=== PATIENT | male | born 1990 | race Hispanic/Latino ===

== ENCOUNTER 2018-10-14 14:41 | Emergency (ER) | payer OTHER ==
[2018-10-14] MEDS ORDERED: HYDROXYZINE HCL 25 MG TABLET ONE (15:17)
[2018-10-14] MEDS ORDERED: ASPIRIN 325 MG TABLET ONE (15:17)
[2018-10-14 15:22] LABS: BASOPHILS % (AUTO) 0.3 % (0.0-5.0); EOSINOPHILS % (AUTO) 0.2 % (0.0-8.0); HEMATOCRIT 47.8 % (42-54); LYMPHOCYTES % (AUTO) 6.4 % (21.0-51.0); MEAN CORPUSCULAR HEMOGLOBIN 29.7 pg (27.0-33.0); MEAN CORPUSCULAR HGB CONC 33.4 g/dL (32.0-36.0); MONOCYTES % (AUTO) 4.1 % (3.0-13.0); PLATELET COUNT (AUTO) 205 K/uL (130-400); RED BLOOD CELL COUNT(AUTO) 5.38 MIL/uL (4.50-6.20); RED CELL DISTRIBUTION WIDTH 14.8 % (11.0-15.5); WHITE BLOOD COUNT (AUTO) 12.6 K/uL (4.8-10.8)
[2018-10-14 15:37] LABS: CARBON DIOXIDE 27 mmol/L (21-32); CHLORIDE 102 mmol/L (101-111); GLOMERULAR FILTR. RATE CALC 94 mL/min (>60); GLUCOSE,RANDOM 124 mg/dL (70-105); POTASSIUM 3.6 mmol/L (3.5-5.1); SODIUM SERUM 139 mmol/L (136-145); UREA NITROGEN, BLOOD 15 mg/dL (7-18)
[2018-10-14 15:42] LABS: ALANINE AMINOTRANSFERASE 30 U/L (12-78); ALBUMIN 4.6 g/dL (3.5-5.0); ASPARTATE AMINOTRANSFERASE 17 U/L (10-37); BILIRUBIN,TOTAL 0.2 mg/dL (0.2-1.0); CREATINE KINASE, TOTAL 178 U/L (21-232); TOTAL PROTEIN, SERUM 8.1 g/dL (6.0-8.3)
[2018-10-14 15:45] LABS: ALCOHOL, BLOOD < 3 mg/dL (0-10)
[2018-10-14 15:52] LABS: B-TYPE NATRIURETIC PEPTIDE 6 pg/mL (0-100)
[2018-10-14 16:26] LABS: APPEARANCE,URINE SL CLOUDY (CLEAR); BILIRUBIN,URINE NEGATIVE (NEGATIVE); COLOR,URINE YELLOW (YELLOW); GLUCOSE, URINE (UA) 500 mg/dL (NEGATIVE); KETONES,URINE NEGATIVE (NEGATIVE); LEUKOCYTE ESTERASE ,URINE NEGATIVE (NEGATIVE); NITRATE,URINE NEGATIVE (NEGATIVE); OCCULT BLOOD,URINE TRACE-INTACT (NEGATIVE); PH,URINE 5.5 (5.0-8.0); PROTEIN,URINE TRACE mg/dL (NEGATIVE); UROBILINOGEN,URINE 0.2 mg/dL (0.2-1.0)
[2018-10-14 16:34] LABS: AMPHET/METH SCREEN,URINE NEGATIVE (NEGATIVE); BARBITURATE SCREEN, URINE NEGATIVE (NEGATIVE); BENZODIAZEPINES SCREEN,URINE POSITIVE (NEGATIVE); CANNABINOID SCREEN,URINE POSITIVE (NEGATIVE); COCAINE SCREEN,URINE NEGATIVE (NEGATIVE); OPIATE SCREEN,URINE NEGATIVE (NEGATIVE); PHENCYCLIDINE SCREEN,URINE NEGATIVE (NEGATIVE)
[2018-10-14] MEDS ORDERED: AZITHROMYCIN 250 MG TABLET PO ONE (17:18)
[2018-10-14 17:37] LABS: OTHER CRYSTALS,URINE AMMONIUM BIURATES 2+ /LPF (None Seen)
[2018-10-14 17:38] LABS: RBC,URINE 0-1 /HPF (0-1); WBC,URINE 0-1 /HPF (0-1)
[2018-10-14 17:39] LABS: BACTERIA,URINE Few /HPF (None Seen); MUCUS,URINE Few LPF (None Seen); SQUAMOUS EPITHELIAL CELL,UR Rare /HPF (0-2)
== END 2018-10-14 17:24 | disposition home or self-care (01) ==
LOC: EDH 14:41
DX: R07.89 Other chest pain (principal); R05 Cough; Z72.0 Tobacco use
CPT/HCPCS: 36415; 71045; 80053; 80305; 81001; 82550; 83880; 84484 ×2; 85025; 93005 ×2; 99284; G0480

== ENCOUNTER 2021-01-29 00:59 | Emergency (ER) | payer OTHER ==
[~2021-01-29] VITALS: Ht 172.7 cm; Wt 97.6 kg
[2021-01-29 01:00] VITALS: BP 138/87
[2021-01-29 01:26] LABS: BASOPHILS % (AUTO) 0.6 % (0.0-5.0); EOSINOPHILS % (AUTO) 3.7 % (0.0-8.0); LYMPHOCYTES % (AUTO) 39.3 % (21.0-51.0); MEAN CORPUSCULAR HEMOGLOBIN 29.9 pg (27.0-33.0); MEAN CORPUSCULAR HGB CONC 33.8 g/dL (32.0-36.0); MEAN CORPUSCULAR VOLUME 88.5 fL (79-99); MONOCYTES % (AUTO) 7.4 % (3.0-13.0); NEUTROPHILS % (AUTO) 48.8 % (40.0-77.0); PLATELET COUNT (AUTO) 218 K/uL (130-400); RED BLOOD CELL COUNT(AUTO) 5.31 MIL/uL (4.50-6.20); RED CELL DISTRIBUTION WIDTH 13.8 % (11.0-15.5); WHITE BLOOD COUNT (AUTO) 8.3 K/uL (4.8-10.8)
[2021-01-29 01:35] LABS: CREATININE 0.9 mg/dL (0.5-1.5); POTASSIUM 4.1 mmol/L (3.5-5.1)
[2021-01-29 01:39] LABS: ALBUMIN 4.1 g/dL (3.5-5.0); BILIRUBIN,TOTAL 0.4 mg/dL (0.2-1.0); TOTAL PROTEIN, SERUM 7.4 g/dL (6.0-8.3)
[2021-01-29] MEDS ORDERED: 0.9%NACL 1000ML 1,000 ML IV ONE (02:30)
[2021-01-29 02:58] VITALS: BP 136/69
== END 2021-01-29 03:56 | disposition home or self-care (01) ==
LOC: EDH 00:59
DX: E86.9 Volume depletion, unspecified (principal); R53.81 Other malaise
CPT/HCPCS: 36415; 71045; 80053; 84484; 85025; 93005; 96360; 99285; J7030

== ENCOUNTER 2024-06-16 17:30 | Emergency (ER) | payer SELFPAY ==
[~2024-06-16] VITALS: Ht 172.7 cm; Wt 90.7 kg
[2024-06-16] MEDS: teTANUS/diphthERIA TOXOID [ADULT] 0.5 ML VIAL IM ONE (18:01)
[2024-06-16] MEDS: LIDOCAINE HCL 1% 20 ML VIAL INJ SCH (18:02)
[2024-06-16 18:11] VITALS: BP 150/90; PULSE 84; RESP 16; TEMP 98.3; O2SAT 98
--- NOTE | 2024-06-16 19:24 | HMCIMG ---
FINGER(S) 2+VWS LT HISTORY: Laceration of left index finger COMPARISON: None TECHNIQUE: 3 images of left fingers were obtained with specific attention given to the second finger. FINDINGS: There is soft tissue laceration of the second finger. Slight cortical irregularity is seen involving the second distal phalanx with nondisplaced fractures not excluded. There is no acute displaced fracture or dislocation. No evidence of radiopaque foreign body is seen. IMPRESSION: 1. Findings as described above.
[2024-06-16] MEDS: HYDROcodone/acetaMINOPHEN 10/325 MG TAB PO ONE (20:16)
[2024-06-16] MEDS: ceFAZolin SODIUM 1 GM VIAL IM ONE (20:17)
[2024-06-16] MEDS ORDERED: SULF1TAB42 PO (20:20)
--- NOTE | 2024-06-16 20:20 | ERN ---
General Chief Complaint: Laceration/Avulsion Stated Complaint: LACERATION TO LT INDEX FINGER Time Seen by MD: 17:31 Time Seen by Midlevel: 17:31 Source: patient History of Present Illness Initial Comments Patient is a 33-year-old male with no significant past medical history presenting to the emergency department with a laceration to the left index finger. Patient states he was working on a muffler when one of the edges cut the tip of his finger. Patient denies being up-to-date with his tetanus vaccination. Denies any other concerns at this time. Allergies: Coded Allergies: No Known Drug Allergies (Unverified Allergy, Unknown, 01/29/21) Home Meds Active Scripts Sulfamethoxazole/Trimethoprim (Bactrim Ds Tablet) 800 Mg-160 Mg Tablet, 1 TAB PO BID for 7 Days, #14 TAB 0 Refills Prov:GLORIA TAPIA 06/16/24 Past Medical History Past Medical History: No Pertinent History Past Surgical History: None Social History Social History: ETOH ROS Dictation CONSTITUTIONAL: Negative except for HPI HEAD/FACE: Negative except for HPI EENT: Negative except for HPI RESPIRATORY: Negative except for HPI GASTROINTESTINAL/ABDOMINAL: Negative except for HPI GENITOURINARY: Negative except for HPI MUSCULOSKELETAL: Negative except for HPI INTEGUMENTARY: Negative except for HPI NEUROLOGICAL/PSYCH: Negative except for HPI HEMATOLOGIC/LYMPHATIC: Negative except for HPI All Systems Negative, Except as noted above. 13 point review of systems assessed and all negative except for above. Physical Exam Physical Exam Dictation PHYSICAL EXAM: GENERAL: alert,, awake oriented x 3 HEENT: EOMI, Sclera non icteric, moist mucosa NECK: Supple, no JVD, trachea midline LUNGS: Clear breath sounds bilaterally. No wheezes HEART: Regular rate and rhythm. Normal S1 and S2, without murmurs ABD: Abdomen soft, nontender. Bowel sounds present EXT: No clubbing or cyanosis, NEURO: Alert and oriented to person, follows commands Skin: There is a jagged U shaped laceration measuring approximately 2 cm in length to the left index finger MDM MDM: Patient is a 33-year-old male with no significant past medical history presenting to the emergency department with a laceration to the left index finge r. Patient states he was working on a muffler when one of the edges cut the tip of his finger. Patient denies being up-to-date with his tetanus vaccination. Denies any other concerns at this time. On physical examination there is a jagged U shaped laceration to the left index finger measuring proximally 2 cm in length. An x-ray of the left index finger was obtained which is remarkable for a soft tissue laceration of the left 2nd finger. There is a slight cortical irregularity involving the 2nd distal phalanx with nondisplaced fractures not included. This was correlated clinically patient does not have any bony tenderness I do not believe this is a fracture. Tetanus vaccination was administered in the emergency department. Laceration was thoroughly cleansed with Betadine and wound cleanser. The area was anesthetized with 2 cc of 1% lidocaine without epi. The laceration was successfully repaired with nine 5-0 Ethilon simple interrupted sutures. Wound care precautions were given to the patient. Patient will need to follow up with his primary care provider in 7-10 days or return to the ER for suture removal. Red flag symptoms discussed. Patient was given 1 g of Ancef IM and will be discharged home with the oral antibiotics to prevent infection. Differential diagnosis: Laceration, abrasion, fracture There are no social concerns with this patient. Prescription drug management Prescriptions will include: Bactrim Medical management and examination interpretation discussions were had by me with other qualified healthcare professionals as indicated for the patient's care. ED Course Orders Procedure Category Date Status Time Tetanus,Diphtheria PHA 06/16/24 Complete Tox [Adult] (Diphther 18:00 Finger(S) 2+Vws Lt RAD 06/16/24 Resulted 17:47 Lidocaine Hcl 1% 20ml PHA 06/16/24 Complete Vial (Lidocaine Hc 18:00 Cefazolin Sodium 1 Gm PHA 06/16/24 Complete Vial (Ancef 1 Gm V 20:30 Hydrocodone/Apap PHA 06/16/24 Complete 10/325 Tab (Muir 10) 20:30 Current Medications Medications (Trade) Dose Ordered Sig/Brandon Route PRN Reason Start Time Stop Time Status Last Admin Dose Admin Acetaminophen/ Hydrocodone Bitart (NORco 10) 1 tab ONCE ONCE PO 06/16/24 20:30 06/16/24 20:31 DC 06/16/24 20:16 Cefazolin Sodium (ANCEF 1 gm vial) 1 gm ONCE ONCE IM 06/16/24 20:30 06/16/24 20:31 DC 06/16/24 20:17 Lidocaine HCl (Lidocaine HCl 1% 20ml Vial) ONCE INJ 06/16/24 18:00 06/16/24 20:33 DC 06/16/24 18:02 Tetanus/ Diphtheria Toxoids Adsorbed (DiphthERIA-teTANUS TOXOID [ADULT]/ DECAVAC) 0.5 ml ONCE ONCE IM 06/16/24 18:00 06/16/24 18:01 DC 06/16/24 18:01 Vital Signs Date Time Temp Pulse Resp B/P (MAP) Pulse Ox O2 Delivery O2 Flow Rate FiO2 06/16/24 18:11 98.2 84 16 150/90 98 Room Air* 0 21 06/16/24 17:31 86 20 153/92 Room Air [place] [id number] [address] IMAGING REPORT Signed PATIENT: TEJAL MEZA JR MR#: [id number] : 1990 SEX: M AGE: 33 LOCATION: [facility] ORDER 48 STATUS: REG ER REPORT#: [id number] SERVICE 46 REASON: laceration to left index finger r/o fracture ORDERING PHYSICIAN: GLORIA TAPIA PROCEDURE: FINGER LT - FINGER(S) 2+VWS LT FINGER(S) 2+VWS LT HISTORY: Laceration of left index finger COMPARISON: None TECHNIQUE: 3 images of left fingers were obtained with specific attention given to the second finger. FINDINGS: There is soft tissue laceration of the second finger. Slight cortical irregularity is seen involving the second distal phalanx with nondisplaced fractures not excluded. There is no acute displaced fracture or dislocation. No evidence of radiopaque foreign body is seen. IMPRESSION: 1. Findings as described above. DICTATED BY: FLASH MARTINEZ MD DATE: 06/16/241919 ELECTRONICALLY SIGNED BY: FLASH MARTINEZ MD DATE: 06/16/241923 Procedure Dictation Procedure Name: Laceration Repair Indication: Reduce risk of infection Location: U shaped jagged laceration to the left index finger measuring approximately 2 cm in length Pre-Procedure Diagnosis: Laceration Post-Procedure Diagnosis: Repaired Laceration Informed consent was obtained before procedure started. PROCEDURE: The appropriate timeout was taken. The area was prepped and draped in the usual sterile fashion. Local anesthesia was achieved using 2cc of Lidocaine 1% without epinephrine. The wound was copiously irrigated. 9 5-0 N Ethilon simple interrupted sutures were placed. Estimated blood loss was less than 0.5 mL. A dressing was applied to the area and anticipatory guidance, as well as standard post-procedure care, was explained. Return precautions are given. The patient tolerated the procedure well without complications. Follow-up visit set for suture removal and evaluation of the laceration. DX & DISP Disposition: Discharge Departure Impression: Primary Impression: Laceration of left index finger Condition: Stable Scripts Sulfamethoxazole/Trimethoprim (Bactrim Ds Tablet) 800 Mg-160 Mg Tablet 1 TAB PO BID for 7 Days, #14 TAB 0 Refills Prov: GLORIA TAPIA 06/16/24 Additional Instructions: Your laceration was successfully repaired with nine sutures. These will need to be removed in 7-10 days. If you notice any redness, abnormal discharge, swelling, please return to the ER for further evaluation. I have given you antibiotics in the emergency department and have given you a prescription for oral antibiotics at home. If you can please follow up with your primary care doctor in 2-3 days for repeat evaluation. Return to the ER for any new or worsening symptoms Referrals: SELF,REFERRAL (PCP) Time of Disposition: 20:19 I have reviewed the case, and I agree with, Diagnosis and Plan I performed the substantive portion of the visit. I have reviewed and personally made and approve the management plan that is documented in the note by myself or the [facility]. I acknowledge for responsibility for the patient's management plan. GLORIA TAPIA Jun 16, 2024 20:20
== END 2024-06-16 20:33 | disposition home or self-care (01) ==
LOC: EDH 17:30
DX: S61.211A Laceration without foreign body of left index finger without damage to nail, initial encounter (principal); W45.8XXA Other foreign body or object entering through skin, initial encounter; Y93.89 Activity, other specified; Y92.89 Other specified places as the place of occurrence of the external cause; Y99.8 Other external cause status
CPT/HCPCS: 99284; 90714; 73140; 90471; 12001; 96372; J0690